=== PATIENT | female | born 1990 | race Caucasian/White ===

== ENCOUNTER 2021-01-02 | Emergency (ER) | payer BC | END 2021-01-02 20:43 | disposition home or self-care (01) ==

== ENCOUNTER 2022-09-13 23:44 | Emergency (ER) | payer BC ==
[2022-09-13 23:58] VITALS: TEMP 98.2
[2022-09-14] MEDS ORDERED: MORPHINE SULFATE 4 MG/ML SYRINGE IVP STA (00:15)
[2022-09-14 00:46] LABS: Basophils # (A) 0.1 k/uL (0-0.2); Basophils % (A) 0 %; Eosinophils # (A) 0.1 k/uL (0-0.7); Eosinophils % (A) 1 %; HCT 40.9 % (34.0-46.0); HGB 13.6 gm/dL (11.4-16.0); Lymphocytes # (A) 0.7 k/uL (1.0-4.8); Lymphocytes % (A) 5 %; MCH 29.2 pg (25.0-35.0); MCHC 33.4 g/dL (31.0-37.0); MCV 87.5 fL (80.0-100.0); Mean Platelet Volume 6.8; Monocytes # (A) 0.7 k/uL (0-1.0); Monocytes % (A) 5 %; Neutrophils # (A) 13.7 k/uL (1.3-7.7); Neutrophils % (A) 89 %; Platelet Count 269 k/uL (150-450); RBC 4.67 m/uL (3.80-5.40); RDW 12.6 % (11.5-15.5); WBC 15.4 k/uL (3.8-10.6)
[2022-09-14 00:58] LABS: Appearance,Urine Cloudy (Clear); Bilirubin,Urine Negative (Negative); Blood,Urine Small (Negative); Color,Urine Yellow; Glucose,Urine (UA) Negative (Negative); Ketones,Urine Negative (Negative); Leukocyte Esterase,Urine Large (Negative); Mucus,Urine Many /hpf; Nitrite,Urine Negative (Negative); Protein,Urine 1+ (Negative); RBC,Urine 10 /hpf (0-5); Specific Gravity,Urine 1.018 (1.001-1.035); Squamous Epithelial Cell,Urine 6 /hpf (0-4); Urobilinogen,Urine <2.0 mg/dL (<2.0); WBC,Urine 158 /hpf (0-5)
[2022-09-14 00:59] LABS: ALT 63 U/L (4-34); AST 36 U/L (14-36); African American GFR (CKD) >90 (>60 ml/min/1.73 sqM); Albumin 4.4 g/dL (3.5-5.0); Alkaline Phosphatase 63 U/L (38-126); Anion Gap 9 mmol/L; Blood Urea Nitrogen 15 mg/dL (7-17); Calcium 9.1 mg/dL (8.4-10.2); Carbon Dioxide 25 mmol/L (22-30); Chloride 103 mmol/L (98-107); Glucose 144 mg/dL (74-99); Non-African American GFR(CKD) >90 (>60 ml/min/1.73 sqM); Sodium 137 mmol/L (137-145); Total Bilirubin 0.8 mg/dL (0.2-1.3); Total Protein 7.3 g/dL (6.3-8.2)
[2022-09-14] MEDS ORDERED: ONDANSETRON 4 MG/2 ML VIAL IVP STA (01:53)
--- NOTE | 2022-09-14 01:59 | ED ---
Abdominal Pain HPI - General Chief Complaint: Abdominal Pain Stated Complaint: Back pain,ABD pain Time Seen by Provider: 09/14/22 00:10 Source: patient Mode of arrival: ambulatory Limitations: no limitations - History of Present Illness Initial Comments: Patient is a 32-year-old female presenting with chief complaint of left-sided flank pain. Patient states that she has had symptoms of discomfort with urination for a few days, and today started with flank pain. Patient states that the pain became so intense that she didn't vomit. She took 2 Motrin today and then vomited for the pain. Patient has history of kidney stones. States that the pain wraps around from the back to the front. No diarrhea, hematochezia, melena, hematuria, fever, chills, chest pain, difficulty breathing. - Related Data Previous Rx's Medication Instructions Recorded Cephalexin [Keflex] 500 mg PO Q12HR 14 Days #28 cap 09/14/22 Ketorolac [Toradol] 10 mg PO Q6HR PRN #20 tab 09/14/22 Ondansetron Odt [Zofran Odt] 4 mg PO Q8HR PRN #30 tab 09/14/22 Allergies Allergy/AdvReac Type Severity Reaction Status Date / Time No Known Allergies Allergy Verified 01/02/21 17:59 Review of Systems ROS Statement: Those systems with pertinent positive or pertinent negative responses have been documented in the HPI. ROS Other: All systems not noted in ROS Statement are negative. Past Medical History Past Medical History: No Reported History History of Any Multi-Drug Resistant Organisms: None Reported Past Surgical History: Appendectomy Past Psychological History: No Psychological Hx Reported Smoking Status: Never smoker Past Alcohol Use History: None Reported Past Drug Use History: None Reported General Exam Limitations: no limitations General appearance: alert, in no apparent distress Head exam: Present: atraumatic, normocephalic, normal inspection Eye exam: Present: normal appearance Neck exam: Present: normal inspection, full ROM Respiratory exam: Present: normal lung sounds bilaterally. Absent: respiratory distress, wheezes, rales, rhonchi, stridor Cardiovascular Exam: Present: regular rate, normal rhythm, normal heart sounds. Absent: systolic murmur, diastolic murmur, rubs, gallop, clicks GI/Abdominal exam: Present: soft, tenderness (Mild tenderness to the left side). Absent: distended, guarding, rebound, rigid Back exam: Present: CVA tenderness (L). Absent: CVA tenderness (R) Neurological exam: Present: alert, oriented X3, CN II-XII intact Psychiatric exam: Present: normal affect, normal mood Skin exam: Present: warm, dry, intact, normal color. Absent: rash Course Vital Signs 09/13/22 09/14/22 23:52 04:33 Temperature 98.2 F Pulse Rate 110 H 79 Respiratory 18 16 Rate Blood Pressure 125/79 125/68 O2 Sat by Pulse 97 97 Oximetry Medical Decision Making - Medical Decision Making Was pt. sent in by a medical professional or institution (, PA, BILLING DEPARTMENT SUPERVISOR, urgent care, hospital, or senior care...) When possible be specific @ -No Did you speak to anyone other than the patient for history (EMS, parent, family, police, friend...)? What history was obtained from this source @ -No Did you review nursing and triage notes (agree or disagree)? Why? @ -I reviewed and agree with nursing and triage notes Were old charts reviewed (outside hosp., previous admission, EMS record, old EKG, old radiological studies, urgent care reports/EKG's, senior care records)? Report findings @ -No old charts were reviewed Differential Diagnosis (chest pain, altered mental status, abdominal pain women, abdominal pain men, vaginal bleeding, weakness, fever, dyspnea, syncope, headache, dizziness, GI bleed, back pain, seizure, CVA, palpatations, mental health, musculoskeletal)? @ -Differential includes nephrolithiasis, pyelonephritis, colitis, musculoskeletal back pain, this is not an all inclusive list EKG interpreted by me (3pts min.). @ -As above X-rays interpreted by me (1pt min.). @ -None done CT interpreted by me (1pt min.). @ -CT of the abdomen and pelvis without contrast shows no evidence of renal stone or obstruction. Appendix not seen. No acute abnormality of the abdomen and pelvis. U/S interpreted by me (1pt. min.). @ -None done What testing was considered but not performed or refused? (CT, X-rays, U/S, labs )? Why? @ -None What meds were considered but not given or refused? Why? @ -None Did you discuss the management of the patient with other professionals (professionals i.e. , PA, BILLING DEPARTMENT SUPERVISOR, lab, RT, psych nurse, social problems specialist, family lawyer, teacher, personal banking officer, case mgr)? Give summary @ -No Was smoking cessation discussed for >3mins.? @ -No Was critical care preformed (if so, how long)? @ -No Were there social determinants of health that impacted care today? How? (Homelessness, low income, unemployed, alcoholism, drug addiction, transportation, low edu. Level, literacy, decrease access to med. care, senior living, rehab)? @ -No Was there de-escalation of care discussed even if they declined (Discuss DNR or withdrawal of care, Hospice)? DNR status @ -No What co-morbidities impacted this encounter? (DM, HTN, Smoking, COPD, CAD, Cancer, CVA, ARF, Chemo, Hep., AIDS, mental health diagnosis, sleep apnea, morbid obesity)? @ -None Was patient admitted / discharged? Hospital course, mention meds given and route, prescriptions, significant lab abnormalities, going to OR and other pertinent info. @ -Patient is a 32-year-old female presenting with chief complaint of left- sided flank pain. On physical examination there is left-sided CVA tenderness and some mild left-sided abdominal pain on palpation. WBC 15.4. Urine shows large leukocytes and 10 rbc's. HCG is negative. I educated the patient on these findings and explained that we would be treating for pyelonephritis. Pamela klein is requesting a CAT scan as she has history of kidney stones and states that this pain feels identical. I explained to the patient due to the low concentration of blood in her urine kidney stone was unlikely, she continued to request CT. CT was obtained which showed no evidence of obstruction. Patient was educated on these findings. She was treated with Keflex and given a dose of IV Rocephin here in the ER. Educated on supportive treatment at home and given a prescription for ketorolac. Follow-up with PCP. Report back to ER with any new or worsening symptoms. Discussed return parameters and answered all questions. Patient conveyed verbal understanding and agreed to the plan. I discussed this case in detail with my attending Dr. Painter Undiagnosed new problem with uncertain prognosis? @ -No Drug Therapy requiring intensive monitoring for toxicity (Heparin, Nitro, Insulin, Cardizem)? @ -No Were any procedures done? @ -No Diagnosis/symptom? @ -Pyelonephritis Acute, or Chronic, or Acute on Chronic? @ -Acute Uncomplicated (without systemic symptoms) or Complicated (systemic symptoms)? @ -Uncomplicated Side effects of treatment? @ -No Exacerbation, Progression, or Severe Exacerbation? @ -No Poses a threat to life or bodily function? How? (Chest pain, [place], [place], pneumonia, PE, COPD, DKA, ARF, appy, cholecystitis, CVA, Diverticulitis, Homicidal, Suicidal, threat to staff... and all critical care pts) @ -No - Lab Data Result diagrams: 09/14/22 00:28 09/14/22 00:28 Lab Results 09/14/22 09/14/22 09/14/22 Range/Units 00:28 00:28 00:28 WBC 15.4 H (3.8-10.6) k/uL RBC 4.67 (3.80-5.40) m/uL Hgb 13.6 (11.4-16.0) gm/dL Hct 40.9 (34.0-46.0) % MCV 87.5 (80.0-100.0) fL MCH 29.2 (25.0-35.0) pg MCHC 33.4 (31.0-37.0) g/dL RDW 12.6 (11.5-15.5) % Plt Count 269 (150-450) k/uL MPV 6.8 Neutrophils % 89 % Lymphocytes % 5 % Monocytes % 5 % Eosinophils % 1 % Basophils % 0 % Neutrophils # 13.7 H (1.3-7.7) k/uL Lymphocytes # 0.7 L (1.0-4.8) k/uL Monocytes # 0.7 (0-1.0) k/uL Eosinophils # 0.1 (0-0.7) k/uL Basophils # 0.1 (0-0.2) k/uL Sodium (137-145) mmol/L Potassium (3.5-5.1) mmol/L Chloride (98-107) mmol/L Carbon Dioxide (22-30) mmol/L Anion Gap mmol/L BUN (7-17) mg/dL Creatinine (0.52-1.04) mg/dL Est GFR (CKD-EPI)AfAm (>60 ml/min/1.73 sqM) Est GFR (CKD-EPI)NonAf (>60 ml/min/1.73 sqM) Glucose (74-99) mg/dL Calcium (8.4-10.2) mg/dL Total Bilirubin (0.2-1.3) mg/dL AST (14-36) U/L ALT (4-34) U/L Alkaline Phosphatase (38-126) U/L Total Protein (6.3-8.2) g/dL Albumin (3.5-5.0) g/dL Urine Color Yellow Urine Appearance Cloudy H (Clear) Urine pH 7.0 (5.0-8.0) Ur Specific [place] 1.018 (1.001-1.035) Urine Protein 1+ H (Negative) Urine Glucose (UA) Negative (Negative) Urine Ketones Negative (Negative) Urine Blood Small H (Negative) Urine Nitrite Negative (Negative) Urine Bilirubin Negative (Negative) Urine Urobilinogen <2.0 (<2.0) mg/dL Ur Leukocyte Esterase Large H (Negative) Urine RBC 10 H (0-5) /hpf Urine WBC 158 H (0-5) /hpf Ur Squamous Epith Cells 6 H (0-4) /hpf Urine Mucus Many H (None) /hpf Urine HCG, Qual Not Detected (Not Detectd) 09/14/22 Range/Units 00:28 WBC (3.8-10.6) k/uL RBC (3.80-5.40) m/uL Hgb (11.4-16.0) gm/dL Hct (34.0-46.0) % MCV (80.0-100.0) fL MCH (25.0-35.0) pg MCHC (31.0-37.0) g/dL RDW (11.5-15.5) % Plt Count (150-450) k/uL MPV Neutrophils % % Lymphocytes % % Monocytes % % Eosinophils % % Basophils % % Neutrophils # (1.3-7.7) k/uL Lymphocytes # (1.0-4.8) k/uL Monocytes # (0-1.0) k/uL Eosinophils # (0-0.7) k/uL Basophils # (0-0.2) k/uL Sodium 137 (137-145) mmol/L Potassium 4.0 (3.5-5.1) mmol/L Chloride 103 (98-107) mmol/L Carbon Dioxide 25 (22-30) mmol/L Anion Gap 9 mmol/L BUN 15 (7-17) mg/dL Creatinine 0.78 (0.52-1.04) mg/dL Est GFR (CKD-EPI)AfAm >90 (>60 ml/min/1.73 sqM) Est GFR (CKD-EPI)NonAf >90 (>60 ml/min/1.73 sqM) Glucose 144 H (74-99) mg/dL Calcium 9.1 (8.4-10.2) mg/dL Total Bilirubin 0.8 (0.2-1.3) mg/dL AST 36 (14-36) U/L ALT 63 H (4-34) U/L Alkaline Phosphatase 63 (38-126) U/L Total Protein 7.3 (6.3-8.2) g/dL Albumin 4.4 (3.5-5.0) g/dL Urine Color Urine Appearance (Clear) Urine pH (5.0-8.0) Ur Specific [place] (1.001-1.035) Urine Protein (Negative) Urine Glucose (UA) (Negative) Urine Ketones (Negative) Urine Blood (Negative) Urine Nitrite (Negative) Urine Bilirubin (Negative) Urine Urobilinogen (<2.0) mg/dL Ur Leukocyte Esterase (Negative) Urine RBC (0-5) /hpf Urine WBC (0-5) /hpf Ur Squamous Epith Cells (0-4) /hpf Urine Mucus (None) /hpf Urine HCG, Qual (Not Detectd) Disposition Clinical Impression: Pyelonephritis Disposition: HOME SELF-CARE Condition: Fair Instructions (If sedation given, give patient instructions): Kidney Infection (ED) Additional Instructions: Follow-up with PCP. Report back to ER with any new or worsening symptoms. Take medication as prescribed. Prescriptions: Cephalexin [Keflex] 500 mg PO Q12HR 14 Days #28 cap Ketorolac [Toradol] 10 mg PO Q6HR PRN #20 tab PRN Reason: Pain Ondansetron Odt [Zofran Odt] 4 mg PO Q8HR PRN #30 tab PRN Reason: Nausea Is patient prescribed a controlled substance at d/c from ED?: No Referrals: None,Stated [Primary Care Provider] - 1-2 days
[2022-09-14] MEDS ORDERED: cefTRIAXone IN SWFI 1,000 MG/10 ML SYRINGE IVP STA (02:40)
--- NOTE | 2022-09-14 04:19 | CT ---
EXAMINATION TYPE: CT abdomen pelvis wo con DATE OF EXAM: 09/14/2022 COMPARISON: None HISTORY: LEFT FLANK PAIN CT DLP: 611.5 mGycm Automated exposure control for dose reduction was used. Images obtained of the abdomen and pelvis from the diaphragm to the floor the pelvis with no contrast . Lung bases are clear. No pleural effusion. Heart size is normal. No pericardial effusion. Liver splee n stomach pancreas and gallbladder appear intact. The bile ducts are not dilated. There is no adrenal mass. Kidneys show normal size and contour. No hydronephrosis. Ureters are not di lated. No retroperitoneal adenopathy. The bladder distends smoothly. No inguinal hernia. No free flui d in the pelvis. No sign of a pelvic mass. Uterus is anteverted. The lumbar vertebra have normal spacing and alignment. Posterior elements are intact. No compression fracture. The bony pelvis is intact. The hip joints are intact. Sacroiliac joints are intact. Cecum is low in the pelvis. Appendix not clearly seen. No sign of thickened appendix. There is no mes enteric edema. No ascites or free air. No sign of a bowel obstruction. There is 2 cm fat-containing u mbilical hernia. IMPRESSION: No evidence of renal stone or obstruction. Appendix not seen. No acute abnormality of the abdomen and pelvis.
[2022-09-14 04:34] VITALS: BP 125/68; PULSE 79; RESP 16
== END 2022-09-14 04:40 | disposition home or self-care (01) ==
LOC: EC 23:44
DX: N12 Tubulo-interstitial nephritis, not specified as acute or chronic (principal)
CPT/HCPCS: 36415; 80053; 85025; 81001; 81025; 87086; 87077; 87186; 74176; 99284; 96374; 96375; J2270; J0696

== ENCOUNTER 2023-02-02 20:54 | Emergency (ER) | payer BC ==
[2023-02-02 21:10] VITALS: TEMP 98.1
[2023-02-02] MEDS ORDERED: KETOROLAC 15 MG/ML 1 ML VIAL IVP STA (21:38)
[2023-02-02] MEDS ORDERED: SODIUM CHLORIDE 0.9% 1,000 ML IV STA (21:39)
[2023-02-02] MEDS ORDERED: ONDANSETRON 4 MG/2 ML VIAL IVP STA (21:39)
[2023-02-02 22:19] LABS: Basophils % (A) 1 %; Eosinophils # (A) 0.4 k/uL (0-0.7); Eosinophils % (A) 5 %; HCT 39.3 % (34.0-46.0); HGB 13.1 gm/dL (11.4-16.0); Lymphocytes # (A) 1.8 k/uL (1.0-4.8); Lymphocytes % (A) 25 %; MCH 28.8 pg (25.0-35.0); MCHC 33.3 g/dL (31.0-37.0); MCV 86.5 fL (80.0-100.0); Mean Platelet Volume 6.7; Monocytes # (A) 0.5 k/uL (0-1.0); Monocytes % (A) 7 %; Neutrophils # (A) 4.3 k/uL (1.3-7.7); Neutrophils % (A) 59 %; Platelet Count 270 k/uL (150-450); RBC 4.54 m/uL (3.80-5.40); RDW 12.5 % (11.5-15.5); WBC 7.2 k/uL (3.8-10.6)
[2023-02-02 22:39] LABS: ALT 31 U/L (4-34); AST 34 U/L (14-36); African American GFR (CKD) >90 (>60 ml/min/1.73 sqM); Albumin 4.2 g/dL (3.5-5.0); Alkaline Phosphatase 60 U/L (38-126); Anion Gap 8 mmol/L; Blood Urea Nitrogen 16 mg/dL (7-17); Calcium 9.4 mg/dL (8.4-10.2); Carbon Dioxide 27 mmol/L (22-30); Chloride 103 mmol/L (98-107); Glucose 93 mg/dL (74-99); Non-African American GFR(CKD) >90 (>60 ml/min/1.73 sqM); Sodium 138 mmol/L (137-145); Total Bilirubin 0.4 mg/dL (0.2-1.3); Total Protein 7.5 g/dL (6.3-8.2)
--- NOTE | 2023-02-03 01:15 | US ---
EXAM: US Left Breast, Limited CLINICAL HISTORY: ITS.REASON US Reason: Left nipple pain and swelling, redness fluctuance 1 week. Purulent discharge. Patient breast-feeding, stopped 30 days ago. TECHNIQUE: Limited and targeted real time ultrasound of the left breast in addition to 4 quadrant scanning, with image documentation, including axilla when performed. COMPARISON: No relevant prior studies available. FINDINGS: Left breast: Mottled appearance of breast tissue noted at area of concern inferior to the nipple, with mild hyperemia. No fluid collection to suggest an abscess. IMPRESSION: 1. No fluid collection or abscess. 2. COMMENTS: A clinical breast exam by your physician is recommended on an annual basis and results should be correlated with mammographic findings. This exam should not preclude additional follow-up of suspicious palpable abnormalities. 3. BI-RADS 3
--- NOTE | 2023-02-03 01:50 | ED ---
General Adult HPI - General Chief complaint: Recheck/Abnormal Lab/Rx Stated complaint: chest tenderness Time Seen by Provider: 02/02/23 21:19 Source: patient Mode of arrival: ambulatory Limitations: no limitations - History of Present Illness Initial comments: Patient is a 32-year-old female who presents to the emergency department for left breast pain. Patient stopped breast-feeding completely 30 days ago. She started a new control which is estrogen and progesterone a couple weeks ago. One week ago she started to experience left breast pain. She then noticed increased redness of the breast and went to urgent care. They told her it was n ot infectious and therefore she is not on any antibiotics. Patient states the redness and pain is worsening. She denies fever, chills, nausea, vomiting. Patient is already on amoxicillin for sinus infection which she started 2 days ago. - Related Data Previous Rx's Medication Instructions Recorded Cephalexin [Keflex] 500 mg PO Q12HR 14 Days #28 cap 09/14/22 Ketorolac [Toradol] 10 mg PO Q6HR PRN #20 tab 09/14/22 Ondansetron Odt [Zofran Odt] 4 mg PO Q8HR PRN #30 tab 09/14/22 Allergies Allergy/AdvReac Type Severity Reaction Status Date / Time No Known Allergies Allergy Verified 02/02/23 21:10 Review of Systems ROS Statement: Those systems with pertinent positive or pertinent negative responses have been documented in the HPI. ROS Other: All systems not noted in ROS Statement are negative. Past Medical History Past Medical History: No Reported History History of Any Multi-Drug Resistant Organisms: None Reported Past Surgical History: Appendectomy Past Psychological History: No Psychological Hx Reported Smoking Status: Never smoker Past Alcohol Use History: None Reported Past Drug Use History: None Reported General Exam Limitations: no limitations General appearance: alert Respiratory exam: Present: normal lung sounds bilaterally. Absent: respiratory distress, wheezes, rales, rhonchi, stridor Cardiovascular Exam: Present: regular rate, normal rhythm, normal heart sounds. Absent: systolic murmur, diastolic murmur, rubs, gallop, clicks Neurological exam: Present: alert Psychiatric exam: Present: normal affect, normal mood Skin exam: Present: warm, dry, intact, normal color, other (increased redness of left areola with warmth and tenderness. No change in the color or appearance of nipple. Tender nodule palpated under nipple no fluctuance.). Absent: rash Course Vital Signs 02/02/23 02/03/23 21:06 01:56 Temperature 98.1 F Pulse Rate 87 72 Respiratory 16 18 Rate Blood Pressure 139/85 122/77 O2 Sat by Pulse 99 98 Oximetry Medical Decision Making - Medical Decision Making Was pt. sent in by a medical professional or institution (, ROSALIND, HYDROGRAPHICAL TECHNICAL OFFICER, urgent care, hospital, or [place] health care facility...) When possible be specific @ -No Did you speak to anyone other than the patient for history (EMS, parent, family, police, friend...)? What history was obtained from this source @ -No Did you review nursing and triage notes (agree or disagree)? Why? @ -I reviewed and agree with nursing and triage notes Were old charts reviewed (outside hosp., previous admission, EMS record, old EKG, old radiological studies, urgent care reports/EKG's, [place] [facility] facility records)? Report findings @ -No old charts were reviewed Differential Diagnosis (chest pain, altered mental status, abdominal pain women, abdominal pain men, vaginal bleeding, weakness, fever, dyspnea, syncope, headache, dizziness, GI bleed, back pain, seizure, CVA, palpatations, mental health)? @ -cellulitis, mastitis, abscess. This list is not meant to be all-inclusive EKG interpreted by me (3pts min.). @ -As above X-rays interpreted by me (1pt min.). @ -None done CT interpreted by me (1pt min.). @ -None done U/S interpreted by me (1pt. min.). @ -No fluid collection or abscess What testing was considered but not performed or refused? (CT, X-rays, U/S, labs)? Why? @ -None What meds were considered but not given or refused? Why? @ -None Did you discuss the management of the patient with other professionals (professionals i.e. ROSALIND Lo, HYDROGRAPHICAL TECHNICAL OFFICER, lab, RT, psych nurse, social media intern, chip mixing machine operator, teacher, welfare officer, case manager specialist)? Give summary @ -No Was smoking cessation discussed for >3mins.? @ -No Was critical care preformed (if so, how long)? @ -No Were there social determinants of health that impacted care today? How? (Homelessness, low income, unemployed, alcoholism, drug addiction, transportation, low edu. Level, literacy, decrease access to med. care, longterm, rehab)? @ -No Was there de-escalation of care discussed even if they declined (Discuss DNR or withdrawal of care, Hospice)? DNR status @ -No] What co-morbidities impacted this encounter? (DM, HTN, Smoking, COPD, CAD, Cancer, CVA, ARF, Chemo, Hep., AIDS, mental health diagnosis, sleep apnea, morbid obesity)? @ -[None] Was patient admitted / discharged? Hospital course, mention meds given and route, prescriptions, significant lab abnormalities, going to OR and other pertinent info. @ -Patient presenting for left breast pain. Ultrasound interpreted by myself no evidence of fluid collection or abscess. No systemic symptoms or signs. No leukocytosis. Patient will continue amoxicillin and follow-up with her gynec ologist. Undiagnosed new problem with uncertain prognosis? @ -[No] Drug Therapy requiring intensive monitoring for toxicity (Heparin, Nitro, In sulin, Cardizem)? @ -[No] Were any procedures done? @ -[No] Diagnosis/symptom? @ -breast pain, left Acute, or Chronic, or Acute on Chronic? @ -acute Uncomplicated (without systemic symptoms) or Complicated (systemic symptoms)? @ -uncomplicated Side effects of treatment? @ -[No] Exacerbation, Progression, or Severe Exacerbation? @ -[No] Poses a threat to life or bodily function? How? (Chest pain, [place], [place], pneumonia, PE, COPD, DKA, ARF, appy, cholecystitis, CVA, Diverticulitis, Homicidal, Suicidal, threat to staff... and all critical care pts) @ -No Dr. Hernandes is my attending - Lab Data Result diagrams: 02/02/23 21:47 02/02/23 21:47 Lab Results 02/02/23 02/02/23 02/02/23 Range/Units 21:47 21:47 21:47 WBC 7.2 (3.8-10.6) k/uL RBC 4.54 (3.80-5.40) m/uL Hgb 13.1 (11.4-16.0) gm/dL Hct 39.3 (34.0-46.0) % MCV 86.5 (80.0-100.0) fL MCH 28.8 (25.0-35.0) pg MCHC 33.3 (31.0-37.0) g/dL RDW 12.5 (11.5-15.5) % Plt Count 270 (150-450) k/uL MPV 6.7 Neutrophils % 59 % Lymphocytes % 25 % Monocytes % 7 % Eosinophils % 5 % Basophils % 1 % Neutrophils # 4.3 (1.3-7.7) k/uL Lymphocytes # 1.8 (1.0-4.8) k/uL Monocytes # 0.5 (0-1.0) k/uL Eosinophils # 0.4 (0-0.7) k/uL Basophils # 0.0 (0-0.2) k/uL Sodium 138 (137-145) mmol/L Potassium 4.0 (3.5-5.1) mmol/L Chloride 103 (98-107) mmol/L Carbon Dioxide 27 (22-30) mmol/L Anion Gap 8 mmol/L BUN 16 (7-17) mg/dL Creatinine 0.75 (0.52-1.04) mg/dL Est GFR (CKD-EPI)AfAm >90 (>60 ml/min/1.73 sqM) Est GFR (CKD-EPI)NonAf >90 (>60 ml/min/1.73 sqM) Glucose 93 (74-99) mg/dL Plasma Lactic Acid [place] 0.6 L (0.7-2.0) mmol/L Calcium 9.4 (8.4-10.2) mg/dL Total Bilirubin 0.4 (0.2-1.3) mg/dL AST 34 (14-36) U/L ALT 31 (4-34) U/L Alkaline Phosphatase 60 (38-126) U/L Total Protein 7.5 (6.3-8.2) g/dL Albumin 4.2 (3.5-5.0) g/dL Disposition Clinical Impression: Breast pain, left Disposition: HOME SELF-CARE Condition: Good Instructions (If sedation given, give patient instructions): Mastitis (ED) Additional Instructions: Continue Amoxicillin. Apply warm compress. Attempt to express milk. Follow-up with OB in 1-2 days. Return to the emergency department if you experience new, concerning, or worsening symptoms. Is patient prescribed a controlled substance at d/c from ED?: No Referrals: None,Stated [Primary Care Provider] - 1-2 days
[2023-02-03 01:57] VITALS: BP 122/77; PULSE 72; RESP 18
== END 2023-02-03 01:57 | disposition home or self-care (01) ==
LOC: EC 20:54
DX: N64.4 Mastodynia (principal)
CPT/HCPCS: 36415; 80053; 83605; 85025; 76641; 99284; 96374; 96375; 96361; J2405; J1885

== ENCOUNTER → 2023-07-09 | Outpatient (CLI) | payer BC ==
--- NOTE | 2023-07-09 10:55 | P.SLEEP ---
History of Present Illness DATE: 07/09/2023 CONSULTATION/NEW PATIENT EVALUATION HISTORY OF PRESENT ILLNESS/SLEEP-WAKE EVALUATION: 32-year-old lady had been ev aluated in the sleep center for possible obstructive sleep apnea hypopnea syndrome. SLEEP SCHEDULE: Usually sleep schedule from 9:10 PM to 6 AM on weekdays sent from 11 PM to 6 AM on on weekend. FALLING ASLEEP: Sometimes patient has difficulties with falling asleep, although no TV in bedroom. DURING SLEEP: Patient sleeps on the back and side position with extremely loud snoring, wakes up from sleep 3 times with 2 episodes of nocturia. Positive history of sleep talking. No history of hypnogogical hallucinations, sleep paralysis, or cataplexy. DURING THE DAY/WAKE STATE: In the morning patient wake up tired, has difficulties to concentrate. Slemp sleepiness scale is 0. Patient doesn't take naps. PAST MEDICAL HISTORY: Peptic ulcer disease. PAST SURGICAL HISTORY: Appendectomy. MEDICATIONS: None at the present time. SOCIAL HISTORY: Negative for smoking, alcohol consumption occasional. FAMILY HISTORY: Snoring, epilepsy, diabetes, mental illness. REVIEW OF SYSTEMS: Multiple awakenings from sleep, feeling tiredness during the day. No fevers. No double vision. No recent chest pain. No shortness of breath. No abdominal pain. No bleeding episodes. No blood in urine. No seizure episodes. PHYSICAL EXAMINATION: GENERAL: A pleasant patient without any distress. VITAL SIGNS: BP 112/71, HR 57, RR 12, weight 198 pounds, height 5 foot 8 and 1/4 inches, body mass index 29.9. HEENT: PERRLA, EOMI. Evaluation of oropharynx showed tongue protrudes midline, low position of soft palate Mallampati 4, retrognathia 2 mm. NECK: Supple. No JVD. Thyroid is not palpable. 15 inches in circumference. LUNGS: Clear to percussion and to auscultation. Good air exchange. No wheezing or rhonchi. HEART: S1, S2 regular. No murmurs, gallops or rubs. ABDOMEN: Soft and nontender. Bowel sounds are present. No organomegaly appreciated. EXTREMITIES: No clubbing or cyanosis. DISTILLATION OPERATOR HELPER: Awake, alert, and oriented x3. Cranial nerves 2 to 7 intact. There is no fasciculation or atrophy noted. No focal deficits observed. ASSESSMENT: 1. Extremely loud snoring, multiple awakenings from sleep, extremely low position of soft palate Mallampati 4, retrognathia 2 mm. Obstructive sleep apnea hypopnea syndrome. 2. Overweight, borderline to obesity, BMI 29.9. 3. History of peptic ulcer disease. 4. Status post appendectomy. PLAN: 1. Home sleep apnea test for evaluation of patient's breathing during sleep. 2. Following plan after reading sleep study. 3. Preferable position during sleep on the side. 4. No driving if patient feels any sleepiness. Patient is aware of civil and criminal liability for unsafe driving. 5. Sleep hygiene with regular sleep time for at least 7.5-8 hours. 6. Watching weight. Thank you very much for referring this patient for consultation. Sincerely, Momo Rueda MD, PhD, FAASM. Diplomat of [employer], Sleep Medicine Board by [employer] Ob/Gyn Physician of [facility] [place] Past Medical History Past Medical History: No Reported History History of Any Multi-Drug Resistant Organisms: None Reported Past Surgical History: Appendectomy Past Psychological History: No Psychological Hx Reported Smoking Status: Never smoker Past Alcohol Use History: None Reported Past Drug Use History: None Reported Medications and Allergies Home Medications Medication Instructions Recorded Confirmed Type Cephalexin [Keflex] 500 mg PO Q12HR 14 Days #28 cap 09/14/22 Rx Ketorolac [Toradol] 10 mg PO Q6HR PRN #20 tab 09/14/22 Rx Ondansetron Odt [Zofran Odt] 4 mg PO Q8HR PRN #30 tab 09/14/22 Rx Allergies Allergy/AdvReac Type Severity Reaction Status Date / Time No Known Allergies Allergy Verified 02/02/23 21:10 Sleep Note - Sleep Note Sleep Note: Temperature: Pulse Rate: Respiratory Rate: Blood Pressure: SpO2: Height: Weight: BMI: Neck Circumference:
== END ==
LOC: 3 N SLEEP 10:15
PROVIDERS: ATTEND Internal Medicine
DX: G47.33 Obstructive sleep apnea (adult) (pediatric) (principal); M26.19 Other specified anomalies of jaw-cranial base relationship; E66.3 Overweight; Z98.890 Other specified postprocedural states; Z90.89 Acquired absence of other organs; Z87.11 Personal history of peptic ulcer disease; Z68.29 Body mass index [BMI] 29.0-29.9, adult
CPT/HCPCS: 99211

== ENCOUNTER → 2023-07-19 | Outpatient (CLI) | payer BC ==
--- NOTE | 2023-07-26 11:47 | P.PCN ---
Description of Procedure: CLINICAL: A home sleep apnea test has been done for confirmation of possible obstructive sleep apnea-hypopnea syndrome. DESCRIPTION OF PROCEDURE: RESULTS: Recording time was 10 hours 37 minutes. Evaluation time was 10 hours 25 minutes. Evaluation time is sufficient for making conclusion about results of the test. Raw data of sleep recording has been reviewed and is adequate. Respiratory channel showed 22 apneas and 18 hypopneas. Apnea-hypopnea index was 3.8 per hour on the back position. Pulse rate in the range between minimum 52, maximum 107, average 67 by computer calculation. Lowest desaturation was 91%. IMPRESSION: 1. Very minimal abnormalities of respiration, in normal range by today's criteria. Normal oxygenation during sleep, lowest oxygen level 91%. Please see other impressions from consultation. PLAN: 1. Preferable position during the sleep on the side. 2. Sleep hygiene with regular time in bed for at least 8 hours. 3. Watching weight. 4. I'll see patient for follow-up visit to explain results of the test and recommendations 5. No driving if feeling any sleepiness. Thank you very much for allowing me to participate in the management of your patient. Sincerely, Momo Rueda MD, PhD, FAASM Diplomat of [employer] Sleep Medicine Board of [employer] Order Entry Specialist of [facility] [place]
== END ==
LOC: 3 N SLEEP 16:28
PROVIDERS: ATTEND Internal Medicine
DX: G47.33 Obstructive sleep apnea (adult) (pediatric) (principal)